=== PATIENT | female | born 1970 | race Caucasian/White ===

== ENCOUNTER 2020-11-21 16:44 | Emergency (ER) | payer SELFPAY ==
--- NOTE | 2020-11-21 16:47 | ED.SKABFB ---
HPI - Skin/Abscess/Foreign Bdy General Chief complaint: Allergic Reaction Stated complaint: Wasp sting allergic Time Seen by Provider: 11/21/20 16:48 Source: patient and RN notes reviewed History of Present Illness HPI narrative: Patient is a 50-year-old female who presents the urgent care with complaints of a wasp sting to the right neck. Patient states that she is allergic to wasp stings . Patient states it happened just prior to arrival and now she is red and itchy all over. Patient denies of any difficulty swallowing, shortness of breath or chest pain. Patient has not done anything prior to arrival for her symptoms. No other acute complaints. Patient appears anxious but otherwise no acute distress noted. Patient aware of the plan of care. Some parts of this dictation were generated by voice recognition software and may contain typographical and/or grammatical inaccuracies. Related Data Allergies Allergy/AdvReac Type Severity Reaction Status Date / Time No Known Allergies Allergy Verified 11/21/20 17:01 Review of Systems Review of Systems: Narrative: CONSTITUTIONAL: Denies fever, chills, or sweats. EYES: Denies visual changes, redness, or discharge. ENT: Denies rhinorrhea, congestion, sore throat, or otalgia. CARDIOVASCULAR: Denies chest pain, palpitations, or edema. RESPIRATORY: Denies cough or dyspnea. GASTROINTESTINAL: Denies abdominal pain, nausea, vomiting, or diarrhea. GENITOURINARY: Denies dysuria or hematuria. SKIN: Reports of redness and itchy skin all over with a wash sting to the right neck MUSCULOSKELETAL: Denies back pain, joint pain, or myalgia. NEUROLOGIC: Denies headache, numbness, or weakness. All other systems reviewed are negative, except as documented in HPI. [facility] Family History Family History (Updated 01/27/16 @ 23:19 by DOCTOR UNKNOWN) Mother Hypertension Family history of diabetes mellitus in first degree relative Family history of malignant neoplasm of uterus Sibling Acute myocardial infarction Other Cerebrovascular accident Diabetes mellitus Family history of cardiovascular disease Social History Social History Alcohol intake: current Comments At the time of my signature, I reviewed and agree with the nursing past medical, surgical, social, and family history. There is no relevant family history pertinent to the patient complaint. Exam Narrative: Exam Narrative: GENERAL: This is a well-nourished, well-developed patient, appears anxious HEAD: normocephalic, atraumatic. EYES: PERRL. Sclera clear/white. Vision is grossly intact. EARS: External ears normal NOSE: External nose normal with no obvious nasal discharge, nares without redness, no rhinorrhea. THROAT: Mucous membranes moist, posterior pharynx clear. Mild postnasal drainage NECK: Neck supple, non-tender without lymphadenopathy CARDIOVASCULAR: Regular rate and rhythm without murmurs, gallops, or rubs. RESPIRATORY: Clear to auscultation. Breath sounds equal bilaterally. No wheezes, rales, or rhonchi. SKIN: Notable insect bite to the right neck with mild surrounding erythema. Skin warm, patchy and red NEURO: awake, alert, and oriented to person, place and time. There were no obvious focal neurologic abnormalities. EXTREMITIES: No clubbing, cyanosis, or edema. Course Vital Signs Vital signs: Vital Signs Temperature 98.1 F 11/21/20 16:50 Pulse Rate 86 11/21/20 16:50 Respiratory Rate 20 11/21/20 16:50 Blood Pressure 144/77 H 11/21/20 16:50 Pulse Oximetry 100 11/21/20 16:50 Temperature 98.1 F 11/21/20 16:50 Pulse Rate 86 11/21/20 16:50 Respiratory Rate 20 11/21/20 16:50 Blood Pressure 144/77 H 11/21/20 16:50 Pulse Oximetry 100 11/21/20 16:50 Reviewed?patient is informed that they may have pre-hypertension or hypertension based on a blood pressure reading in the department. I recommend the patient call the primary care provider listed on their discharge instructions or a physi
[2020-11-21 16:50] VITALS: BP 144/77; PULSE 86; RESP 20; TEMP 36.7; O2SAT 100
[2020-11-21] MEDS: diphenhydrAMINE HCl CAP 25 MG CAPSULE PO (16:57)
[2020-11-21] MEDS: methylPREDNISolone ACETATE 80 MG/ML VIAL IM (16:57)
[2020-11-21] MEDS: FAMOTIDINE 20 MG TABLET PO (16:58)
== END 2020-11-21 17:25 | disposition home or self-care (01) ==
PROVIDERS: Emergency Provider Nurse Practitioner Family; PCP Family Medicine
DX: T63.461A Toxic effect of venom of wasps, accidental (unintentional), initial encounter (principal)
CPT/HCPCS: 96372; 99203; A9270; G0463; J1040

== ENCOUNTER 2020-12-10 19:14 | Emergency (ER) | payer SELFPAY | END 2020-12-10 19:20 | disposition left against medical advice (07) | LOC: CHSED 19:16 | PROVIDERS: Emergency Provider Emergency Medicine; PCP Family Medicine | DX: R51.9 Headache, unspecified (principal) | CPT/HCPCS: 99199 ==

== ENCOUNTER 2023-04-23 15:47 | Emergency (ER) | payer SELFPAY ==
[2023-04-23 15:58] VITALS: BP 151/85; PULSE 83; RESP 18; TEMP 36.4; O2SAT 98
[2023-04-23 16:24] VITALS: BP 159/72; PULSE 62; RESP 18; TEMP 36.3; O2SAT 100
[2023-04-23 16:30] LABS: Glucose Point of Care 274 mg/dl (65-105)
--- NOTE | 2023-04-23 16:36 | ED.GENADULT ---
HPI - General Adult General Chief complaint: Extremity Injury, Lower Stated complaint: Right Ankle Injury Source: patient Mode of arrival: ambulatory Limitations: no limitations History of Present Illness HPI narrative: Patient presents for evaluation of numbness in the right lower leg for the past 3-4 days. She only has symptoms in anterolateral aspect of the right lower leg just beneath the knee and extending through the foot. She states approximately 1 week ago she went to stand up and twisted her right ankle. She is not sure if her numbness is related. She has had several episodes since that time where she feels like her ankles getting give out. She denies any actual pain in the right lower extremity including the ankle. She has some decreased plantarflexion in right foot. She denies any redness, fever, chills, or swelling. Denies any pain in the calf. She is not on any estrogen products. She smokes approximately half a pack per day. She drinks a 12 pack of Pepsi per day. She is not diabetic. Denies any low back pain. Related Data Home Medications Medication Instructions Recorded Confirmed clotrimazole 10 mg sherrie 10 mg PO .5XDAILY 04/23/23 04/23/23 Allergies Allergy/AdvReac Type Severity Reaction Status Date / Time No Known Allergies Allergy Verified 04/23/23 16:15 Review of Systems Review of Systems: CONSTITUTIONAL: Denies fever, chills, or sweats. EYES: Denies visual changes, redness, or discharge. ENT: Denies rhinorrhea, congestion, sore throat, or otalgia. CARDIOVASCULAR: Denies chest pain, palpitations, or edema. RESPIRATORY: Denies cough or dyspnea. GASTROINTESTINAL: Denies abdominal pain, nausea, vomiting, or diarrhea. GENITOURINARY: Denies dysuria or hematuria. SKIN: Denies rash or itching. MUSCULOSKELETAL: Denies back pain, joint pain, or myalgia. NEUROLOGIC: Reports numbness in the anterolateral aspect of the right lower leg PSYCHIATRIC: Denies anxiety or depression. [facility] Past Medical History Medical History No pertinent past medical history Surgical History Surgical History No pertinent past surgical history Family History Family History Mother Hypertension Family history of diabetes mellitus in first degree relative Family history of malignant neoplasm of uterus Sibling Acute myocardial infarction Other Cerebrovascular accident Diabetes mellitus Family history of cardiovascular disease Social History Social History Smoking packs per day: 0.5 Smoking cigarettes per day: 10.0 Smoking status: Current every day smoker Alcohol intake: current Substance use: never Gender identity (if verbalized by the patient): Female Spiritual care concerns: No Exam Narrative: GENERAL: Well-appearing, well-nourished, and in no acute distress. HEAD: Normocephalic, atraumatic. EYES: PERRLA and EOMI. ENT: Nares clear, no rhinorrhea or epistaxis. Mucous membranes moist. Oropharynx without tonsillar hypertrophy exudate or other lesions. Bilateral TMs pearly cuevas nonbulging NECK: Supple. No adenopathy or masses. No carotid bruits or JVD CHEST: Clear to auscultation. No respiratory distress. No wheezes rales or rhonchi HEART: Regular rate and rhythm. No murmur heard. Normal peripheral pulses. ABDOMEN: Soft, nontender, nondistended, normal active bowel sounds. EXTREMITIES: Full range of motion of the right knee. No crepitus or deformity. No edema. No posterior calf tenderness. No tenderness in the right ankle. Able to dorsi and plantar flex the right foot but dorsiflexion is slightly reduced. Decreased sensation in anterolateral aspect of right lower extremity, just beneath the right knee SKIN: Warm, dry, no rash. NEURO: No foc
== END 2023-04-23 16:38 | disposition home or self-care (01) ==
PROVIDERS: Emergency Provider Nurse Practitioner
DX: G62.9 Polyneuropathy, unspecified (principal); R73.9 Hyperglycemia, unspecified; F17.210 Nicotine dependence, cigarettes, uncomplicated
CPT/HCPCS: 82948; 99212; G0463

== ENCOUNTER 2024-02-10 19:37 | Emergency (ER) | payer SELFPAY ==
--- NOTE | ~2024-02-10 | XR_ITS ---
EXAM: XR foot RT min 3V DATE: 02/10/2024 20:07 HISTORY: injury; pain . COMPARISON: None available. FINDINGS: Decreased mineralization. No fracture or dislocation. No lytic or blastic lesion. Mild sca ttered degenerative change. Achilles and plantar enthesopathy. No erosion or periosteal change. Soft tissues within normal limits. IMPRESSION: No acute osseous finding in the right foot. Reviewed, dictated and finalized at location K.
[2024-02-10 19:44] VITALS: BP 155/76; PULSE 84; RESP 20; TEMP 36.9; O2SAT 100
--- NOTE | 2024-02-10 20:04 | ED.LOWEXIN ---
HPI - Extremity Injury (Lower) General Chief Complaint: Extremity Injury, Lower Stated Complaint: Right Ankle/Foot Injury Time Seen by Provider: 02/10/24 19:49 Source: patient, RN notes reviewed and old records reviewed Mode of arrival: ambulatory Limitations: no limitations History of Present Illness HPI Narrative: 53 year to Care for right foot and ankle pain for 3 days. Patient states that she has a history of neuropathy and diabetes mellitus and that she frequently rolls her ankles. Patient states that she was out in her yd 3 days ago when she rolled her right ankle. Patient states that she has been treating at home with ice and Motrin with little relief. Patient reports attempting to work today and states that she had to call off 11 due to pain and discomfort. Patient denies prior significant injury or surgery to right ankle, decreased range of motion, striking head during fall, any other injuries from fall, or any other changes outside of her baseline. Patient sitting comfortably in exam with right lower extremity elevated in wheelchair. Respirations even and nonlabored. Patient in no acute distress. Related Data Home Medications Medication Instructions Recorded Confirmed gabapentin 300 mg capsule 300 mg PO DAILY 02/10/24 02/10/24 metformin 500 mg tablet 500 mg PO BID 02/10/24 02/10/24 Allergies Allergy/AdvReac Type Severity Reaction Status Date / Time No Known Allergies Allergy Verified 02/10/24 20:02 Review of Systems Review of Systems: All systems reviewed & are unremarkable except as noted in HPI and below Constitutional: Constitutional: Reports no additional constitutional complaints Eyes: Eyes: Reports no additional eye complaints ENT: Reports system reviewed and no additional complaints, except as documented Cardiovascular: Cardiovascular: Reports no additional cardiovascular complaints, Denies chest pain and Denies dyspnea Respiratory: Respiratory: Reports no additional respiratory complaints, Denies cough and Denies dyspnea Musculoskeletal: Musculoskeletal: Reports as per HPI, Denies deformity, Reports arthralgias and Reports joint swelling Comments: right ankle and foot Neurologic: Reports system reviewed and no additional complaints, except as documented Psychiatric: Psychiatric: Reports no additional psychiatric complaints PMFSH Past Medical History Medical History No pertinent past medical history Surgical History Surgical History No pertinent past surgical history Family History Family History Mother Hypertension Family history of diabetes mellitus in first degree relative Family history of malignant neoplasm of uterus Sibling Acute myocardial infarction Other Cerebrovascular accident Diabetes mellitus Family history of cardiovascular disease Social History Social History Smoking packs per day: 0.5 Smoking cigarettes per day: 10.0 Smoking status: Current every day smoker Alcohol intake: current Substance use: never Gender identity (if verbalized by the patient): Female Spiritual care concerns: No Comments At the time of my signature, I reviewed and agree with the nursing past medical, surgical, social, and family history. There is no relevant family history pertinent to the patient complaint. Exam Const: General: cooperative, healthy appearing, comfortable, no acute distress, alert and well nourished Nutritional Appearance: well nourished Orientation/consciousness: patient oriented x3 Limitations: no limitations HENMT: Head: normal to inspection Ears: external ears normal Face/Nose/Sinus: Normal external nose present, Normal nares present, normal facial exam, No erythema and No edema Face and sinus:
== END 2024-02-10 20:34 | disposition home or self-care (01) ==
PROVIDERS: Emergency Provider Nurse Practitioner Family
DX: S93.401A Sprain of unspecified ligament of right ankle, initial encounter (principal); S96.911A Strain of unspecified muscle and tendon at ankle and foot level, right foot, initial encounter; X50.9XXA Other and unspecified overexertion or strenuous movements or postures, initial encounter; F17.210 Nicotine dependence, cigarettes, uncomplicated
CPT/HCPCS: 73630; 99213; G0463